=== PATIENT | female | born 1955 | race Caucasian/White ===

== ENCOUNTER 2017-11-14 14:05 | Emergency (ER) | payer BC ==
[2017-11-14 14:20] VITALS: BP 126/79
--- NOTE | 2017-11-14 15:00 | UC ---
Complaint Female HPI - HPI Summary HPI Summary: 62 y/o female presents to the urgent care c/o increase urinary frequency, and burning on urination since Thursday morning. Pt reports pain w/ urination is 5/ 10 associated w/ mild pelvic pain. She has not taking anything to alleviate symptoms. Pt denies Hx of UTI or kidney stones. Pt denies flank pain, fever, SOB , chest pain, abdominal pain, N/V/D. - History Of Current Complaint Chief Complaint: UCGU Stated Complaint: URINARY Time Seen by Provider: 11/14/17 14:50 Hx Obtained From: Patient Onset/Duration: Gradual Onset, Lasting Days - 1 day, Still Present, Worse Since - this morning Timing: Constant Severity Initially: Mild Severity Currently: Moderate Pain Intensity: 5 Pain Scale Used: 0-10 Numeric Character: Burning Aggravating Factor(s): Urination Alleviating Factor(s): Nothing Associated Signs And Symptoms: Positive: Back Pain - lower back pain, Nausea, Vomiting(# Of Episodes =), Genital Swelling, Genital Blisters. Negative: Fever - Risk Factors Ectopic Risk Factor: Negative Ovarian Torsion Risk Factor: Negative - Allergies/Home Medications Allergies/Adverse Reactions: Allergies Allergy/AdvReac Type Severity Reaction Status Date / Time No Known Allergies Allergy Verified 11/14/17 14:20 Home Medications: Home Medications Lisinopril TAB* [Prinivil TAB 10 MG*] 20 mg PO DAILY 11/14/17 [History Confirmed 11/14/17] Montelukast Sodium TAB* [Singulair 10 MG TAB*] 10 mg PO DAILY 11/14/17 [History Confirmed 11/14/17] Rosuvastatin Calcium [Crestor] 20 mg PO DAILY 11/14/17 [History Confirmed ] Sertraline* [Zoloft*] 25 mg PO DAILY 11/14/17 [History Confirmed 11/14/17] PMH/Surg Hx/FS Hx/Imm Hx Previously Healthy: Yes Endocrine History: Dyslipidemia Cardiovascular History: Hypertension Psychological History: Depression - Surgical History Surgical History: None - Family History Known Family History: Positive: Cardiac Disease, Diabetes - Social History Occupation: Employed Full-time Lives: With Family Alcohol Use: Occasionally Substance Use Type: None Smoking Status (MU): Never Smoked Tobacco Review of Systems Constitutional: Negative Skin: Negative Eyes: Negative ENT: Negative Respiratory: Negative Cardiovascular: Negative Gastrointestinal: Negative Genitourinary: Dysuria, Frequency, Urgency, Other - mild pelvic pain Motor: Negative Neurovascular: Negative Musculoskeletal: Negative Neurological: Negative Psychological: Negative Is Patient Immunocompromised?: No All Other Systems Reviewed And Are Negative: Yes Physical Exam - Summary Physical Exam Summary: VITAL SIGNS: Reviewed. GENERAL: Patient is a well developed and nourished female who is sitting comfortable in the examining table. Patient is not in any acute respiratory distress. HEAD AND FACE: No signs of trauma. No ecchymosis, hematomas or skull depressions. No sinus tenderness. EYES: PERRLA, EOMI x 2, No injected conjunctiva, clear watery eyes, no nystagmus. No photophobia. EARS: Hearing grossly intact. Ear canals and tympanic membranes are within normal limits. MOUTH: pharynx with no erythema, no exudates,no palatal petechiae. no B/L tonsillar enlargement Uvula in midline. NECK: Supple, trachea is midline, no lymphadenopathy, no JVD, no carotid bruit, no c-spine tenderness, neck with full ROM. CHEST: Symmetric, no tenderness at palpation LUNGS: Clear to auscultation bilaterally. No wheezing or crackles. CVS: Regular rate and rhythm, S1 and S2 present, no murmurs or gallops appreciated. ABDOMEN: Soft, non-tender. No signs of distention. No rebound no guarding, and no masses palpated. Bowel sounds are normal. BACK:no scoliosis or lesions, non tender to palpation, No B/L CVA tenderness EXTREMITIES: FROM in all major joints, no edema, no cyanosis or clubbing. NEURO: Alert and oriented x 3. No acute neurological deficits. Speech is normal and follows commands. SKIN: Dry and warm Triage Information Reviewed: Yes Vital Signs: Initial Vital Signs Temp 98.0 F 11/14/17 14:16 Pulse 71 11/14/17 14:16 Resp 16 11/14/17 14:16 BP 126/79 11/14/17 14:16 Pulse Ox 100 11/14/17 14:16 Complaint Female Dx - Course Course Of Treatment: 62 y/o female presents to the urgent care c/o increase urinary frequency, and burning on urination since Thursday morning. Pt reports pain w/ urination is 5/10 associated w/ mild pelvic pain. She has not taking anything to alleviate symptoms. Pt denies Hx of UTI or kidney stones. Pt denies flank pain, fever, SOB, chest pain, abdominal pain, N/V/D. Hx obtained. PE: WNL, . UA results: Blood trace, Leukoesterase 3+, nitrates: 3+. Pt Rx Macrobid 100mg PO x 5 days. Pyridium 100mg PO TID x 2 days. Advised to increase fluid intake. Urine sent for culture if any abnormality Pt will be notified for further treatment. Pt advised If symptoms do not improve to return to the urgent care or f/u with PCP. Pt understood and agreed. Left the clinic ambulating. - Differential Dx/Diagnosis Differential Diagnosis/HQI/PQRI: Cervicitis, Renal Colic, Ureteral Stone, Urinary Tract Infection, Other - pyelonepritis Provider Diagnoses: 1-Urinary tract infection. 2-Dysuria Discharge - Sign-Out/Discharge Documenting (check all that apply): Discharge/Admit/Transfer - D/C home - Discharge Plan Condition: Stable Disposition: HOME Prescriptions: Nitrofurantoin Monohyd/M-Cryst [Macrobid 100 mg Capsule] 100 mg PO BID #10 cap Phenazopyridine TAB* [Pyridium 100 mg TAB*] 100 mg PO TID #6 tab Patient Education Materials: Urinary Tract Infection in Women (ED) Referrals: [facility] [place] [facility] [Outside] - 3 Days Additional Instructions: 1- Please take Macrobid 100mg PO x 5 days. Pyridium 100 mg PO TID x 2 days to alleviate urinary symptoms. Increase increase fluid intake. drink cranberry juice. 2-Urine sent for culture if any abnormality, you will be notified for further treatment. 3-If symptoms do not improve please return to the urgent care or f/u with her PCP. - Billing Disposition and Condition Condition: STABLE Disposition: HOME
== END 2017-11-14 15:26 | disposition home or self-care (01) ==
LOC: UCCORT 14:05
DX: N39.0 Urinary tract infection, site not specified (principal); R30.0 Dysuria; B96.20 Unspecified Escherichia coli [E. coli] as the cause of diseases classified elsewhere; I10 Essential (primary) hypertension
CPT/HCPCS: 81003; 87077; 87086; 87186; 99202; G0463